=== PATIENT | male | born 1955 | race Caucasian/White ===

== ENCOUNTER 2023-09-11 22:38 | Emergency (ER) | payer BC, MEDICARE ==
[~2023-09-11] VITALS: Ht 177.8 cm; Wt 113.0 kg
[2023-09-11] MEDS ORDERED: NITROGLYCERIN 0.4 MG SUBL SL PRN (22:45)
[2023-09-11] MEDS ORDERED: MORPHINE SULFATE 4 MG/ML VIAL IV ONE (22:45)
[2023-09-11 23:01] LABS: MCH 29.8 (27-36); MCHC 32.6 g/dl (30-36); MCV 91.5 fl (81-99); PLATELET COUNT 165 K/uL (140-440); RBC 5.03 M/ul (4.3-5.7); RDW 13.4 (10.5-15.0)
[2023-09-11] MEDS ORDERED: ondansetron HCL 4 MG/2 ML VIAL ONE (23:06)
[2023-09-11 23:11] LABS: INR 1.07 (0.80-1.30); PROTIME 13.2 Sec (11.2-14.2)
[2023-09-11] MEDS ORDERED: ondansetron HCL 4 MG/2 ML VIAL IV ONE (23:15)
[2023-09-11 23:23] LABS: BASOPHILS, MANUAL DIFF 1; EOSINOPHILS, MANUAL DIFF 1; LYMPHOCYTES, MANUAL DIFF 11; MONOCYTES, MANUAL DIFF 16; NEUTROPHILS, MANUAL DIFF 71
[2023-09-11 23:26] LABS: ALBUMIN 3.5 g/dL (3.4-5.0); ALBUMIN/GLOBULIN RATIO 1.03 (1.1-2.4); ANION GAP 13.3 (7-21); BUN/CREATININE RATIO 26.04 (6.0-28.6); CALCIUM 8.5 mg/dL (8.5-10.1); CREATININE, SERUM 0.96 mg/dL (0.70-1.30); MAGNESIUM 2.2 mg/dL (1.8-2.4); POTASSIUM 4.3 mmol/L (3.5-5.1); PROTEIN, TOTAL 6.9 g/dL (6.4-8.2)
[2023-09-11] MEDS ORDERED: SODIUM CHLORIDE 0.9% 500 ML IV PRN (23:30)
[2023-09-11] MEDS ORDERED: ELIQUIS5 MG PO (23:33)
[2023-09-11] MEDS ORDERED: VAZALORE81 MG PO (23:43)
[2023-09-11] MEDS ORDERED: LIPITOR40 MG PO (23:44)
[2023-09-11] MEDS ORDERED: DIGOXIN125 MCG PO (23:47)
[2023-09-11] MEDS ORDERED: JARDIANCE25 MG PO (23:48)
[2023-09-11] MEDS ORDERED: LEVEMIR100 UNIT/1 SUB-Q (23:48)
[2023-09-11] MEDS ORDERED: METOPROLOL SUC100 MG PO (23:49)
[2023-09-11] MEDS ORDERED: ENTRESTO 49 MG1 EACH PO (23:50)
[2023-09-11] MEDS ORDERED: PANTOPRAZOLE SO20 MG PO (23:50)
[2023-09-11] MEDS ORDERED: SPIRONOLACTONE25 MG PO (23:51)
[2023-09-12] MEDS ORDERED: KETOROLAC TROMETHAMINE 15 MG/ML VIAL IV ONE (00:15)
[2023-09-12] MEDS ORDERED: COLCHICINE 0.6 MG TAB PO ONE (01:00)
[2023-09-12] MEDS ORDERED: predniSONE 20 MG TAB PO ONE (01:00)
[2023-09-12] MEDS ORDERED: COLCHICINE0.6 M1 PO (01:15)
[2023-09-12] MEDS ORDERED: PREDNISONE20 MG PO (01:15)
[2023-09-12] MEDS ORDERED: NOVOLOG FL100 UNIT/1 SUB-Q (01:18)
[2023-09-12 01:33] VITALS: BP 105/60
--- NOTE | 2023-09-12 19:13 | EKG ---
[facility] [address] [facility] [place], [place] [address] Signed Normal sinus rhythm Left axis deviation Inferior infarct , age undetermined Cannot rule out Anterior infarct , age undetermined Abnormal ECG No previous ECGs available Confirmed by Betty Jordan ([id number]) on 09/12/2023 7:13:35 PM Electronically Signed By: BETTY JORDAN MD 09/12/231912 PATIENT NAME: RABIALUPE Electrocardiogram DATE OF : 55 PHYSICIAN: BETTY JORDAN MD REPORT #: [id number] REPORT IS CONFIDENTIAL AND NOT TO BE RELEASED WITHOUT AUTHORIZATION
== END 2023-09-12 01:40 | disposition home or self-care (01) ==
LOC: ED 22:38
PROVIDERS: Family Medicine
DX: I31.9 Disease of pericardium, unspecified (principal); E11.9 Type 2 diabetes mellitus without complications; Z88.0 Allergy status to penicillin; Z79.82 Long term (current) use of aspirin; Z79.899 Other long term (current) drug therapy; Z79.4 Long term (current) use of insulin
CPT/HCPCS: 36415; 70450; 71045; 71260; 80053; 83735; 83880; 84484; 85025; 85610; 86140; 93005; 93010; 99285-25; J1885; J2270; J2405; J7040; J7512; Q9967